=== PATIENT | male | born 1975 | race Two or more races ===

== ENCOUNTER 2022-05-05 17:05 | Emergency (ER) | payer BC, MEDICAID ==
[~2022-05-05] VITALS: Ht 170.2 cm; Wt 61.2 kg
[2022-05-06 19:55] VITALS: BP 125/82
[2022-05-08] MEDS ORDERED: METH500T22 PO (17:09)
[2022-05-08] MEDS ORDERED: IBUP800T27 PO (17:09)
== END 2022-05-09 19:15 | disposition home or self-care (01) ==
LOC: EDBD 17:05 → ER 17:05
DX: F25.9 Schizoaffective disorder, unspecified (principal)
CPT/HCPCS: 36415; 80320

== ENCOUNTER 2022-05-08 15:57 | Emergency (ER) | payer BC, MEDICAID ==
[~2022-05-08] VITALS: Ht 170.2 cm; Wt 61.2 kg
[2022-05-08] MEDS ORDERED: OLANZapine 5 MG TAB PO ONE (17:00)
[2022-05-08] MEDS ORDERED: IBUP800T27 PO (17:09)
[2022-05-08] MEDS ORDERED: METH500T22 PO (17:09)
[2022-05-08 17:33] VITALS: BP 130/79
== END 2022-05-08 17:41 | disposition home or self-care (01) ==
LOC: ER 15:57
DX: F20.9 Schizophrenia, unspecified (principal); Z76.0 Encounter for issue of repeat prescription